=== PATIENT | female | born 1970 | race Caucasian/White ===

== ENCOUNTER 2017-11-10 11:35 | Day surgery (SDC) | payer OTHER, SELFPAY ==
[2017-11-07 12:18] VITALS: BMI 45.0
[2017-11-10] VITALS (11 sets, daily range): BP systolic 89–145; BP diastolic 52–116; PULSE 67–105; RESP 9–16; TEMP 36–36.6; O2SAT 88–95; BMI 43.2
--- NOTE | 2017-11-10 | DI.RAD.S_ITS ---
PROCEDURE: XR KNEE LT 1TO2V INDICATIONS: UNI LEFT KNEE TECHNIQUE: 2 view(s) of the knee acquired. COMPARISON: None. FINDINGS: Bones: Patient is status post knee joint unicondylar arthroplasty. Hardware components are in expected positions. Visualized bony structures are intact. Soft tissues: Overlying postoperative changes are noted. IMPRESSION: Expected postsurgical change for medial compartment unicondylar arthroplasty. Dictated by: Sandi Mejía MD, PhD on 11/10/2017 at 18:25 Approved by: Sandi Mejía MD, PhD on 11/10/2017 at 18:25
[2017-11-10] MEDS: ACETAMINOPHEN 325 MG TABLET 975 MG PO (12:23)
[2017-11-10] MEDS: CELECOXIB 200 MG CAPSULE PO (12:24)
[2017-11-10] MEDS: VANCOMYCIN 1,000 MG/200 ML FROZ.PIGGY 133.333 MG IV (13:44)
[2017-11-10] MEDS: MIDAZOLAM 2 MG/2 ML VIAL IV (15:01)
[2017-11-10] MEDS: fentaNYL 100 MCG/2 ML INJ 50 MCG IV ×4 (15:01→17:45)
--- NOTE | 2017-11-10 15:29 | SUR.PREOP ---
Block start time [1501] . Monitoring initiated and maintained throughout procedure. Oxygen and medications given per anesthesiologist instructions. Patient remained stable throughout procedure, no adverse reactions noted. Block end time [1517].
[2017-11-10] MEDS: CEFAZOLIN VIAL 3 GM in SODIUM CHLORIDE 0.9% 100 ML 200 ML IV (15:45)
[2017-11-10] MEDS: TRANEXAMIC ACID 1,000 MG VIAL 1000 MG INJ (15:51)
--- NOTE | 2017-11-10 16:08 | SUR.OPER ---
Supine on padded OR bed. Pillow under head, arms secured on padded armboards <90 degree abduction. Safety belt across torso. Non-operative leg secured with tape over blanket over lower leg. Operative leg secured in DeMayo/Deandre positioner. Foam padded brace at thigh of operative leg.
[2017-11-10] MEDS: BUPIVACAINE 0.25% W/ EPI 50 ML VIAL INJ (16:13)
[2017-11-10] MEDS: BUPIVACAINE LIPOSOME 266 MG/20 ML VIAL INJ (16:14)
[2017-11-10] MEDS: POVIDONE-IODINE 15 ML, SODIUM CHLORIDE 0.9% 250 ML TOP (16:15)
[2017-11-10] MEDS: LACTATED RINGERS 1,000 ML 42 ML IV (17:24)
--- NOTE | 2017-11-10 17:49 | PM.PREOP ---
Pre-operative Note Interval Note Pre-op Check: History & Physical Reviewed by Physician
[2017-11-10] MEDS: HYDROMORPHONE 2 MG INJ 0.5 MG IV ×2 (17:52→17:58)
[2017-11-10] MEDS: ONDANSETRON 4 MG/2 ML INJ IV (17:55)
[2017-11-10] MEDS: OXYCODONE IR 5 MG TABLET PO (18:39)
--- NOTE | 2017-11-10 19:09 | SUR.PHASEII ---
PT TEACHING DONE ON HOW TO USE INCENTIVE SPIROMETER WITH PT AND PT SPOUSE. BOTH PT AND SPOUSE VOICED UNDERSTANDING. PT INSTRUCTED TO USE AT HOME EVERY HOUR FOR THE NEXT 48 HOURS. PT DC TO HOME IN STABLE CONDITION, VSS.
--- NOTE | 2017-11-10 21:13 | P.OP_ITS ---
Operative Date/Time/Diagnoses - Date of procedure: 11/10/17 Time of procedure: 14:10 Pre-op diagnosis: Left knee medial compartment arthritis Post-op diagnosis: same Procedure & Clinicians Procedure: Left knee medial compartment arthroplasty Same procedure as scheduled: Yes Indications: The patient has had progressively worsening left knee pain with radiographic changes consistent with arthritis. Non-operative management has failed and the patient has requested unicompartment knee replacement. The risks , benefits and alternatives to surgery were discussed with the patient prior to proceeding. Risks discussed included, but were not limited to, failure to relieve pain, stiffness, infection, nerve damage, deep venous thrombosis, pulmonary embolism, stroke, coma, heart attack, permanent paralysis and , as well as the potential need for eventual revision of the prosthetic. Surgeon: Elli Horne Batting Machine Operator Insulation: Catalina Navarrete Anesthesia Type: General and Peripheral nerve block (Peripheral nerve block done for postoperative pain management) Operative Notes Findings: Severe medial compartment osteoarthritis, normal patellofemoral joint Closure Type: primary Specimen(s): none sent Implants & Drains: [employer] ZUK size 3 left medial tibia size C left medial femoral +9 poly Applied: drain(s) Estimated Blood Loss (mL): 200 Tourniquet time (min): 70 Procedure in detail: The patient was seen in the pre-operative area, where the left knee was identified as the operative site and this was marked with my initials. The patient received pre-operative antibiotics, and was taken to the operating room and placed on the operative table in the supine position. After satisfactory anesthesia, a multimedia programmer out was performed. The right leg was encircled with a tourniquet about the proximal thigh, and the leg was prepared from the toes to the tourniquet with ChloroPrep in the usual fashion and draped through sterile drapes. The leg was elevated and exsanguinated with Eschmark bandage and the tourniquet inflated to [250] mmHg pressure. The knee was approached through an approximately 10 cm incision medial parapatella incision and carried into the knee through a medial parapatellar arthrotomy. The osteophytes and medial meniscus were removed. Next, a small amount of the anterior tibial boss was carefully resected with a saw. The guide was placed along the medial joint line. It was meticulously adjusted to make sure there was appropriate slope that it was at the joint line and then was pinned to the tibia and the femur. The medial femoral condylar cut was made in extension. The tibial cut was made in flexion. The bone was meticulously irrigated with normal saline. Small amount of additional meniscus was resected posterior capsule was checked and injected with Marcaine. The extension gap was carefully checked with an 8 mm gap neon sign servicer was noted that it fit well. A small number of additional osteophytes were resected. The tibia was a size [3]. It was noted that it fit without overhang. The femur was sized and it was noted to be a [C]. The appropriate cutting guide was pinned into place and carefully positioned on the femoral condyle. Drill holes were placed. The tibia was pinned into place and drill holes were made. Trial reduction with the appropriate poly showed full range of motion and good stability at 0, 45. and 90? with normal tracking of the components without edge loading. The bone was meticulously irrigated and dried. Additional Marcaine was injected. The posterior capsule was injected with 0.25% Marcaine mixed with 20 ml Exparel for post-operative pain control. The remainder of this mixture was injected into the capsule and subcutaneous tissues during cement curing. Range of motion was [0-130], with good stability throughout the range. The trials were then remove. The cement was as applied and the final prosthetics placed. Excess cement was removed during and after cement curing. A brief medial compartment Betadine soak was performed. After confirming there was no extruded cement posteriorly, the final tibial insert was placed. The knee was copiously irrigated and the tourniquet deflated. Hemostasis was obtained. The capsule was closed with interrupted # 1 black braided nylon. The subcutaneous tissue was closed with barbed sutures. The skin with a running 3- 0 V-Lock suture and surgical glue. An Aquacel Ag dressing was applied and the patient was taken to recovery having tolerated the procedure well. Complications: none Condition: stable Disposition: same day surgery Plan for aftercare: The patient will be maintained on a standard medial unicompartment knee replacement protocol with weight bearing as tolerated. The patient will receive aspirin and sequential compression devices for DVT prophylaxis. The patient will be discharged home when safe for the home environment.
== END 2017-11-10 19:11 | disposition home or self-care (01) ==
PROVIDERS: PCP Student in an Organized Health Care Education/Training Program; Visit Provider Orthopaedic Surgery
PROC: (CPT 27446; principal; 2017-11-10 13:45)
DX: M17.12 Unilateral primary osteoarthritis, left knee (principal); E66.9 Obesity, unspecified; Z68.39 Body mass index [BMI] 39.0-39.9, adult; G89.18 Other acute postprocedural pain
CPT/HCPCS: 27446; 64450; 73560; C1776; C9290; J0690; J1100; J1170; J2250; J2405; J2704; J3010; J3370

== ENCOUNTER → 2020-07-18 09:03 | Outpatient (CLI) | payer OTHER, SELFPAY ==
[2020-07-18] MEDS: COVID-19 VACC, Ad26(JANSSEN)/PF 0.5 ML IM (09:15)
== END ==
PROVIDERS: PCP Student in an Organized Health Care Education/Training Program; Visit Provider Internal Medicine
DX: Z23 Encounter for immunization (principal)
CPT/HCPCS: 0031A; 91303